=== PATIENT | female | born 1985 | race Two or more races ===

== ENCOUNTER 2022-07-29 15:29 | Emergency (ER) | payer OTHER ==
[~2022-07-29] VITALS: Ht 162.6 cm; Wt 59.9 kg
[2022-07-29] MEDS ORDERED: IBUP600T27 PO (18:24)
[2022-07-29 18:59] LABS: Urine Blood Negative /uL (Negative); Urine Specific Gravity 1.028 (1.001-1.035)
[2022-07-29 19:02] VITALS: BP 114/81
== END 2022-07-29 19:03 | disposition home or self-care (01) ==
LOC: ER 15:29
DX: S60.211A Contusion of right wrist, initial encounter (principal); W10.8XXA Fall (on) (from) other stairs and steps, initial encounter; Y93.89 Activity, other specified; Y92.89 Other specified places as the place of occurrence of the external cause; Y99.8 Other external cause status
CPT/HCPCS: 73000; 73030; 73110; 81003